=== PATIENT | female | born 1960 | race Caucasian/White ===

== ENCOUNTER 2018-05-08 08:42 | Emergency (ER) | payer OTHER ==
[2018-05-08 09:38] LABS: Absolute Lymphocytes (CBC) 1.2 K/uL (0.7-4.9); Absolute Monocytes 0.6 K/uL (0.1-1.3); Absolute Neutrophil 6.6 K/uL (1.8-8.0); Basophils % 0.4 % (0-1.3); Lymphocytes % 14.5 % (15.3-44.8); MCH 32.6 pg (27.0-35.0); MCV 92.7 fL (80-100); MPV 8.3 fL (7.6-11.3); Monocytes % 6.7 % (3.3-12.3); RBC Red Blood Cell Count 4.42 M/uL (3.86-4.86)
[2018-05-08 09:41] LABS: Protime INR 1.01
[2018-05-08] MEDS ORDERED: ASPIRIN 81 MG CHEWABLE TABLET ONE (09:46)
[2018-05-08] MEDS ORDERED: NITROGLYCERIN 0.4 MG/TAB SL ONE (09:46)
[2018-05-08] MEDS ORDERED: PANTOPRAZOLE 40 MG INJ ONE (09:46)
[2018-05-08 10:08] LABS: ALT/SGPT 20 U/L (12-78); AST/SGOT 22 U/L (15-37); Albumin 3.6 g/dL (3.4-5.0); Alkaline Phosphatase 90 U/L (45-117); BUN Blood Urea Nitrogen 8 mg/dL (7-18); Bicarbonate 24 mmol/L (21-32); Bilirubin Direct 0.2 mg/dL (0-0.2); Bilirubin Total 0.5 mg/dL (0.2-1.0); Glucose Level 116 mg/dL (74-106); Magnesium 1.8 mg/dL (1.8-2.4); NT PRO-BNP 55 pg/mL (<125); Protein, Total 7.6 g/dL (6.4-8.2); Sodium Level 135 mmol/L (136-145); Troponin (Emerg Dept Use Only) < 0.02 ng/mL (0.0-0.045)
[2018-05-08] MEDS ORDERED: LIDOCAINE VISCOUS 2% SOLN 15 ML UDC ONE (10:55)
[2018-05-08] MEDS ORDERED: MAGNE/ALUM HYDROXD 30 ML UCUP ONE (10:55)
--- NOTE | 2018-05-08 10:59 | RAD REPORT ---
EXAM DESCRIPTION: RAD - Chest Single View - 05/08/2018 10:39 am CLINICAL HISTORY: CHEST PAIN Chest pain. COMPARISON: No comparisons FINDINGS: Portable technique limits examination quality. The lungs are grossly clear. The heart is normal in size. No displaced fractures. IMPRESSION: No acute intrathoracic process suspected.
--- NOTE | 2018-05-08 12:18 | ER ---
Nurse's Notes [facility] Name: Radha Swanson Age: 57 yrs Sex: Female : 1960 Arrival Date: 05/08/2018 Time: 08:44 Bed 6 Private MD: Diagnosis: Chest pain, unspecified;Gastritis, unspecified Presentation: 05/08 09:01 Presenting complaint: Patient states: Woke up at 0200 with sudden substernal chest jl7 pain, rated 8/10, sweaty, clammy and nauseous; pt fell back asleep and woke this morning and was nauseous with substernal chest pain rated 2/10. Transition of care: patient was not received from another setting of care. Onset of symptoms was May 08, 2018 at 02:00. Risk Assessment: Do you want to hurt yourself or someone else? Patient reports no desire to harm self or others. Initial Sepsis Screen: Does the patient meet any 2 criteria? No. Patient's initial sepsis screen is negative. Does the patient have a suspected source of infection? No. Patient's initial sepsis screen is negative. Care prior to arrival: None. 09:01 Method Of Arrival: Ambulatory jl7 09:01 Acuity: EZEQUIEL 2 jl7 Triage Assessment: 09:05 General: Appears in no apparent distress. uncomfortable, Behavior is calm, cooperative, jl7 appropriate for age. Pain: Complains of pain in mid-sternal area Pain does not radiate. Pain currently is 2 out of 10 on a pain scale. at worst was 8 out of 10 on a pain scale. Quality of pain is described as dull, pressure, Pain began 0200 this morning Is continuous. EENT: No signs and/or symptoms were reported regarding the EENT system. Neuro: Level of Consciousness is awake, alert, obeys commands, Oriented to person, place, time, situation. Cardiovascular: Heart tones present Patient's skin is warm and dry. Respiratory: Airway is patent Respiratory effort is even, unlabored, Respiratory pattern is regular, symmetrical, Breath sounds are clear bilaterally. GI: Reports nausea, Patient currently denies diarrhea, vomiting. : No signs and/or symptoms were reported regarding the genitourinary system. Derm: Skin is pink, warm \T\ dry. Musculoskeletal: No signs and/or symptoms reported regarding the musculoskeletal system. Historical: - Allergies: 09:05 No Known Allergies; jl7 - Home Meds: 09:05 None [Active]; jl7 - PMHx: 09:05 None; jl7 - PSHx: 09:05 Cholecystectomy; Appendectomy; ; jl7 - Immunization history:: Adult Immunizations up to date. - Social history:: Smoking status: Patient uses tobacco products, smokes one-half pack cigarettes per day, Patient uses alcohol, 6 pack a couple days a week. - Ebola Screening: : No symptoms or risks identified at this time. Screenin:08 Abuse screen: Denies threats or abuse. Denies injuries from another. Nutritional jl7 screening: No deficits noted. Tuberculosis screening: No symptoms or risk factors identified. Fall Risk IV access (20 points). Total Burgess Fall Scale indicates No Risk (0-24 pts). Assessment: 09:08 General: See triage assessment. jl 10:00 Reassessment: Patient appears in no apparent distress at this time. Patient and/or [facility] family updated on plan of care and expected duration. Pain level reassessed. Patient is alert, oriented x 3, equal unlabored respirations, skin warm/dry/pink. 10:45 Reassessment: Patient appears in no apparent distress at this time. No changes from [facility] previously documented assessment. Patient and/or family updated on plan of care and expected duration. Pain level reassessed. Patient is alert, oriented x 3, equal unlabored respirations, skin warm/dry/pink. 12:00 Reassessment: Patient appears in no apparent distress at this time. Patient and/or [facility] family updated on plan of care and expected duration. Pain level reassessed. Patient is alert, oriented x 3, equal unlabored respirations, skin warm/dry/pink. Pain: Denies pain. Vital Signs: 09:05 BP 158 / 92; Pulse 90; Resp 16 S; Temp 98.8(O); Pulse Ox 95% on R/A; Weight 97.52 kg jl7 (R); Height 5 ft. 0 in. (152.40 cm) (R); Pain 210; 09:46 BP 185 / 86; Pulse 95; Resp 16 S; Pulse Ox 97% on R/A; jl7 10:09 BP 156 / 62; Pulse 87; Resp 16 S; Pulse Ox 92% on R/A; jl7 10:52 BP 161 / 98; Pulse 89; Resp 18 S; Pulse Ox 94% on R/A; jl7 12:00 BP 152 / 82; Pulse 73; Resp 16 S; Pulse Ox 96% on R/A; jl7 09:05 Body Mass Index 41.99 (97.52 kg, 152.40 cm) jl7 ED Course: 08:44 Patient arrived in ED. rg4 08:56 Hu Levine PA is PHCP. jr8 08:56 Bartolo Perez MD is Attending Physician. jr8 09:04 Triage completed. jl7 09:05 Arm band placed on right wrist. jl7 09:08 Patient has correct armband on for positive identification. Placed in gown. Bed in low jl7 position. Call light in reach. Side rails up X 1. desk monitor on. Pulse ox on. NIBP on. Warm blanket given. 09:08 Patient maintains SpO2 saturation greater than 95% on room air. jl7 09:15 Initial lab(s) drawn, by me, sent to lab. Inserted saline lock: 20 gauge in left jl7 antecubital area, using aseptic technique. Blood collected. 09:35 Cely Li, RN is Primary Nurse. jl7 10:39 XRAY Chest (1 view) In Process Unspecified. EDMS 12:00 No provider procedures requiring assistance completed. IV discontinued, intact, jl7 bleeding controlled, No redness/swelling at site. Pressure dressing applied. Administered Medications: 09:45 Drug: Aspirin Chewable Tablet 324 mg Route: PO; jl7 10:44 Follow up: Response: No adverse reaction jl7 09:45 Drug: Nitroglycerin 0.4 mg Route: Sublingual; jl7 10:15 Follow up: Response: No adverse reaction; No change in condition jl7 09:45 Drug: ProTONIX 40 mg Route: IVP; Site: left antecubital; jl7 10:15 Follow up: Response: No adverse reaction; No change in condition jl7 10:50 Drug: GI Cocktail without - (Maalox Suspension 30 ml, Lidocaine Liquid 2 % 15 jl7 ml) Route: PO; 11:15 Follow up: Response: No adverse reaction; Pain is decreased jl7 Outcome: 12:00 Discharged to home ambulatory. jl7 12:00 Condition: stable 12:00 Discharge instructions given to patient, Instructed on discharge instructions, follow up and referral plans. medication usage, Demonstrated understanding of instructions, follow-up care, medications, Prescriptions given X 1. 12:16 Discharge ordered by MD. siegel 12:31 Patient left the ED. jl7 Signatures: Dispatcher [employer] EDMS Hu Levine PA PA jr8 Garcia, Rubi rg4 Cely Li, RN RN jl7
--- NOTE | 2018-05-08 12:18 | EDPHYS ---
Physician Documentation [facility] Name: Radha Swanson Age: 57 yrs Sex: Female : 1960 Arrival Date: 05/08/2018 Time: 08:44 Bed 6 Private MD: ED Physician Bartolo Perez HPI: 05/08 09:45 This 57 yrs old Female presents to ER via Ambulatory with complaints of Chest jr8 Pain, Weakness. 09:45 The patient or guardian reports chest pain that is located primarily in the substernal jr8 area, epigastric area. Onset: acutely, this morning. The pain does not radiate. Associated signs and symptoms: Pertinent positives: diaphoresis, nausea. The chest pain is described as a pressure. Duration: The patient or guardian reports a single episode, that is still ongoing. Modifying factors: The symptoms are alleviated by nothing. the symptoms are aggravated by nothing. Severity of pain: At its worst the pain was moderate in the emergency department the pain is unchanged. The patient has not experienced similar symptoms in the past. The patient has been recently seen by a physician: with different complaint(s), X-rays were performed. Patient stated that she was seen at [facility] emergency room yesterday for fall injury to right shoulder. Stated that images were done and a Toradol shot was given. No acute fracture. Early this AM around 2 woke up with chest pain, diaphoresis, clammy, and nausea. Denies chest, back, head, or neck trauma with fall . Historical: - Allergies: 09:05 No Known Allergies; jl7 - Home Meds: 09:05 None [Active]; jl7 - PMHx: 09:05 None; jl7 - PSHx: 09:05 Cholecystectomy; Appendectomy; ; jl7 - Immunization history:: Adult Immunizations up to date. - Social history:: Smoking status: Patient uses tobacco products, smokes one-half pack cigarettes per day, Patient uses alcohol, 6 pack a couple days a week. - Ebola Screening: : No symptoms or risks identified at this time. ROS: 09:45 Eyes: Negative for injury, pain, redness, and discharge, ENT: Negative for injury, jr8 pain, and discharge, Neck: Negative for injury, pain, and swelling, Respiratory: Negative for shortness of breath, cough, wheezing, and pleuritic chest pain, Abdomen/GI: Negative for abdominal pain, vomiting, diarrhea, and constipation. Positive for nausea Back: Negative for injury and pain, MS/Extremity: Negative for injury and deformity, Skin: Negative for injury, rash, and discoloration, Neuro: Negative for headache, weakness, numbness, tingling, and seizure. 09:45 Cardiovascular: Positive for chest pain, Negative for edema, orthopnea, palpitations, paroxysmal nocturnal dyspnea. Exam: 09:45 Head/Face: Normocephalic, atraumatic. Eyes: Pupils equal round and reactive to light, jr8 extra-ocular motions intact. Lids and lashes normal. Conjunctiva and sclera are non-icteric and not injected. Cornea within normal limits. Periorbital areas with no swelling, redness, or edema. ENT: Nares patent. No nasal discharge, no septal abnormalities noted. Tympanic membranes are normal and external auditory canals are clear. Oropharynx with no redness, swelling, or masses, exudates, or evidence of obstruction, uvula midline. Mucous membranes moist. Neck: Trachea midline, no thyromegaly or masses palpated, and no cervical lymphadenopathy. Supple, full range of motion without nuchal rigidity, or vertebral point tenderness. No Meningismus. Chest/axilla: Normal chest wall appearance and motion. Nontender with no deformity. No lesions are appreciated. Cardiovascular: Regular rate and rhythm with a normal S1 and S2. No gallops, murmurs, or rubs. Normal PMI, no JVD. No pulse deficits. Respiratory: Lungs have equal breath sounds bilaterally, clear to auscultation and percussion. No rales, rhonchi or wheezes noted. No increased work of breathing, no retractions or nasal flaring. Back: No spinal tenderness. No costovertebral tenderness. Full range of motion. Skin: Warm, dry with normal turgor. Normal color with no rashes, no lesions, and no evidence of cellulitis. Neuro: Awake and alert, GCS 15, oriented to person, place, time, and situation. Cranial nerves II-XII grossly intact. Motor strength 5/5 in all extremities. Sensory grossly intact. Cerebellar exam normal. Normal gait. 09:45 Abdomen/GI: Inspection: abdomen appears normal, Bowel sounds: active, all quadrants, Palpation: soft, in all quadrants, mild abdominal tenderness, in the epigastric area, mass, is not appreciated, rebound tenderness, is not appreciated, voluntary guarding, is not appreciated, involuntary guarding, is not appreciated, no appreciated organomegaly, Indicators: McBurney's point is not tender, Moran's sign is negative, Rovsing's sign is negative, Liver: tenderness, is not appreciated. 09:45 Musculoskeletal/extremity: Extremities: grossly normal except: noted in the right shoulder: decreased ROM, pain, tenderness, Circulation is intact in all extremities. Sensation intact. Vital Signs: 09:05 BP 158 / 92; Pulse 90; Resp 16 S; Temp 98.8(O); Pulse Ox 95% on R/A; Weight 97.52 kg jl7 (R); Height 5 ft. 0 in. (152.40 cm) (R); Pain 2/10; 09:46 BP 185 / 86; Pulse 95; Resp 16 S; Pulse Ox 97% on R/A; jl7 10:09 BP 156 / 62; Pulse 87; Resp 16 S; Pulse Ox 92% on R/A; jl7 10:52 BP 161 / 98; Pulse 89; Resp 18 S; Pulse Ox 94% on R/A; jl7 12:00 BP 152 / 82; Pulse 73; Resp 16 S; Pulse Ox 96% on R/A; jl7 09:05 Body Mass Index 41.99 (97.52 kg, 152.40 cm) jl7 MDM: 08:57 Patient medically screened. jr8 12:14 The patient was given aspirin in the Emergency Department. Data reviewed: vital signs, 8 nurses notes, lab test result(s), EKG, radiologic studies, plain films. Data interpreted: Pulse oximetry: on room air is 95 %. Interpretation: normal. Counseling: I had a detailed discussion with the patient and/or guardian regarding: the historical points, exam findings, and any diagnostic results supporting the discharge/admit diagnosis, lab results, radiology results, the need for outpatient follow up, a application defense manager, a family practitioner, to return to the emergency department if symptoms worsen or persist or if there are any questions or concerns that arise at home. Response to treatment: the patient's symptoms have resolved after treatment. ED course: After receiving the GI cocktail. Patient no longer has any pain or pressure. x2 negative troponins. Will send home to f/u with GI and cardiology. Most likely gastritis. Could have been induced from Toradol injection yesterday along with having underlying undiagnosed gastritis . 05/08 09:13 Order name: Basic Metabolic Panel; Complete Time: 10:14 05/08 09:13 Order name: CBC with Diff; Complete Time: 09:43 05/08 09:13 Order name: LFT's; Complete Time: 10:14 05/08 09:13 Order name: Magnesium; Complete Time: 10:14 05/08 09:13 Order name: NT PRO-BNP; Complete Time: 10:14 05/08 09:13 Order name: PT-INR; Complete Time: 10:03 05/08 09:13 Order name: Troponin (emerg Dept Use Only); Complete Time: 10:14 05/08 09:13 Order name: XRAY Chest (1 view); Complete Time: 11:17 05/08 09:21 Order name: Lipase; Complete Time: 10:03 05/08 11:38 Order name: Troponin (emerg Dept Use Only); Complete Time: 12:14 05/08 09:13 Order name: EKG; Complete Time: 09:14 05/08 09:13 Order name: Cardiac monitoring; Complete Time: 09:20 05/08 09:13 Order name: EKG - Nurse/Tech; Complete Time: 09:45 05/08 09:13 Order name: IV Saline Lock; Complete Time: 09:45 05/08 09:13 Order name: Labs collected and sent; Complete Time: 09:45 05/08 09:13 Order name: O2 Per Protocol; Complete Time: 09:44 05/08 09:13 Order name: O2 Sat Monitoring; Complete Time: 09:44 Administered Medications: 09:45 Drug: Aspirin Chewable Tablet 324 mg Route: PO; 10:44 Follow up: Response: No adverse reaction 7 09:45 Drug: Nitroglycerin 0.4 mg Route: Sublingual; jl7 10:15 Follow up: Response: No adverse reaction; No change in condition 09:45 Drug: ProTONIX 40 mg Route: IVP; Site: left antecubital; 7 10:15 Follow up: Response: No adverse reaction; No change in condition jl7 10:50 Drug: GI Cocktail without - (Maalox Suspension 30 ml, Lidocaine Liquid 2 % 15 jl7 ml) Route: PO; 11:15 Follow up: Response: No adverse reaction; Pain is decreased jl7 Disposition: 12:50 Co-signature as Attending Physician, Bartolo Perez MD. rn Disposition: 05/08/18 12:16 Discharged to Home. Impression: Chest pain, unspecified, Gastritis, unspecified. - Condition is Stable. - Discharge Instructions: Nonspecific Chest Pain, Gastritis, Adult. - Prescriptions for Nexium 20 mg Oral Capsule - take 1 capsule by ORAL route once daily; 20 capsule. - Medication Reconciliation Form, Thank You Letter, Antibiotic Education, Prescription Opioid Use form. - Follow up: Private Physician; When: 2 - 3 days; Reason: Recheck today's complaints, Continuance of care, Re-evaluation by your physician. - Problem is new. - Symptoms have improved. Signatures: Dispatcher [employer] EDNJ Bartolo Perez MD MD rn Roszak, Josh, PA PA jr8 Cely Li RN RN jl7 Corrections: (The following items were deleted from the chart) 12:31 12:16 05/08/2018 12:16 Discharged to Home. Impression: Chest pain, unspecified; jl7 Gastritis, unspecified. Condition is Stable. Forms are Medication Reconciliation Form, Thank You Letter, Antibiotic Education, Prescription Opioid Use. Follow up: Private Physician; When: 2 - 3 days; Reason: Recheck today's complaints, Continuance of care, Re-evaluation by your physician. Problem is new. Symptoms have improved. jr8
--- NOTE | 2018-05-09 05:18 | EKG ---
Test Date: 2018-05-08 Test Time: 09:06:09 Educational Technology Coordinator: REHAN MEASUREMENT RESULTS: Intervals: Rate: 74 [place]: 150 QRSD: 88 QT: 356 QTc: 395 [place]: P: 61 [place]: 150 QRS: 73 T: 56 INTERPRETIVE STATEMENTS: Normal sinus rhythm Normal ECG No previous ECG available for comparison Electronically Signed On 05-09-18 05:17:42 SALES PROMOTION DIRECTOR by Paulino Chandler
== END 2018-05-08 12:31 | disposition home or self-care (01) ==
LOC: ER 08:42
DX: K29.70 Gastritis, unspecified, without bleeding (principal); F17.210 Nicotine dependence, cigarettes, uncomplicated
CPT/HCPCS: 36415; 71045; 80048; 80076; 83690; 83735; 83880; 84484; 85025; 85610; 93005; 96374; 99285; C9113